=== PATIENT | male | born 1960 | race Caucasian/White ===

== ENCOUNTER 2016-12-08 00:01 | Emergency (ER) | payer OTHER ==
[~2016-12-08] VITALS: Ht 177.8 cm; Wt 81.6 kg
[2016-12-08 00:05] VITALS: BP_SYST 127
--- NOTE | 2016-12-08 02:21 | NUR ---
Patient to ER bed 7 to gown for evaluation. Side rails up. Report given to Aditya KNIGHT.
--- NOTE | 2016-12-08 02:23 | NUR ---
Patient AAOx4, ambulatory with steady gait. Patient states having pain due to headache for approximately 5 days prior to ER visit. Patient states pain scale 8/10 with sharp sensation, states pain does not radiate at this time. Patient denies any vision abnormalities and denies any mechanism of injury. Patient denies any other complaints.
--- NOTE | 2016-12-08 02:30 | NUR ---
DANIELE Carr at bedside examining patient.
[2016-12-08] MEDS ORDERED: PROCHLORPERAZINE EDISYLATE 10 MG/2 ML VIAL IM ONE (03:00)
[2016-12-08] MEDS ORDERED: KETOROLAC TROMETHAMINE 60 MG/2 ML VIAL IM ONE (03:00)
[2016-12-08 03:58] VITALS: BP_SYST 129
--- NOTE | 2016-12-08 03:58 | NUR ---
Patient given written and verbal discharge instructions and verbalizes understanding. ER MD discussed with patient the results and treatment provided. Patient in stable condition. ID arm band removed. Rx of compazine given. Patient educated on pain management and to follow up with PMD. Pain Scale 0/10. Opportunity for questions provided and answered.
== END 2016-12-08 03:58 | disposition home or self-care (01) ==
LOC: SED 00:01
DX: R51 Headache (principal); E86.0 Dehydration
CPT/HCPCS: 70450; 96372; 99284; J0780; J1885

== ENCOUNTER → 2021-03-26 | Emergency (ER) | payer OTHER, SELFPAY ==
--- NOTE | 2021-03-27 01:00 | NUR ---
Called patient 3x, no answer. Patient left without being seen. No further treatment provided. ER MD aware
== END | disposition left against medical advice (07) ==
LOC: SED 23:56
DX: M25.519 Pain in unspecified shoulder (principal); Z53.21 Procedure and treatment not carried out due to patient leaving prior to being seen by health care provider

== ENCOUNTER 2023-04-02 12:17 | Emergency (ER) | payer MEDICAID ==
[~2023-04-02] VITALS: Ht 175.3 cm; Wt 72.6 kg
[2023-04-02 12:24] VITALS: BP_SYST 97; PULSE 86; RESP 18; TEMP 97.2; O2SAT 96
[2023-04-02] MEDS ORDERED: NACL 0.9% 1,000 ML IV ONE (12:30)
[2023-04-02 13:03] LABS: BASOPHILS # (AUTO) 0.1 K/uL (0.0-0.2); BASOPHILS % (AUTO) 1.6 % (0.0-2.0); EOSINOPHILS # (AUTO) 0.4 K/uL (0.0-0.4); EOSINOPHILS % (AUTO) 4.6 % (0.0-4.0); HEMATOCRIT 41.5 % (36-54); HEMOGLOBIN 13.5 g/dL (14.0-18.0); LYMPHOCYTES # (AUTO) 1.4 K/uL (1.0-5.5); MEAN CORPUSCULAR HEMOGLOBIN 26 pg (27-31); MEAN CORPUSCULAR HGB CONC 33 % (32-36); MEAN CORPUSCULAR VOLUME 79 fL (79.0-98.0); MONOCYTES # (AUTO) 0.6 K/uL (0.0-1.0); MONOCYTES % (AUTO) 7.7 % (1.7-9.3); NEUTROPHILS # (AUTO) 5.3 K/uL (1.8-7.7); NEUTROPHILS % (AUTO) 68.1 % (40.0-70.0); PLATELET COUNT (AUTO) 278 K/uL (130-430); RED BLOOD CELL COUNT(AUTO) 5.29 MIL/uL (4.2-6.2); RED CELL DISTRIBUTION WIDTH 15.5 % (9.0-15.0); WHITE BLOOD COUNT (AUTO) 7.8 K/uL (4.8-10.8)
[2023-04-02 13:07] LABS: ANION GAP 9 (5-15); CALCIUM 8.4 mg/dL (8.4-11.0); CARBON DIOXIDE 24 mmol/L (23-29); CHLORIDE 104 mmol/L (98-107); CREATININE 1.22 mg/dL (0.55-1.30); GFR AFRICAN AMERICAN 77 mL/min (>90); GLUCOSE 114 mg/dL (74-106); POTASSIUM 3.9 mmol/L (3.5-5.1); SODIUM SERUM 137 mmol/L (136-145); UREA NITROGEN, BLOOD 15 mg/dL (8-21)
[2023-04-02 13:09] LABS: GFR NON AFRICAN-AMERICAN 64 mL/min (>90)
[2023-04-02 14:35] VITALS: BP_SYST 110; PULSE 85; RESP 16; TEMP 97.1; O2SAT 95
== END 2023-04-02 14:35 | disposition home or self-care (01) ==
LOC: SED 12:17
DX: R55 Syncope and collapse (principal); R42 Dizziness and giddiness; R05.9 Cough, unspecified; Z79.899 Other long term (current) drug therapy
CPT/HCPCS: 99285; 96360; 71045; 80048; 83880; 85025; 84484; 36415; 93005; 83605; J7030

== ENCOUNTER 2023-04-20 14:01 | Emergency (ER) | payer MEDICAID ==
[~2023-04-20] VITALS: Ht 170.2 cm; Wt 74.8 kg
[2023-04-20 14:01] VITALS: BP_SYST 100; PULSE 83; RESP 18; TEMP 97.8; O2SAT 97
[2023-04-20] MEDS ORDERED: NACL 0.9% 1,000 ML IV ONE (14:45)
[2023-04-20 15:01] LABS: BASOPHILS # (AUTO) 0.1 K/uL (0.0-0.2); EOSINOPHILS # (AUTO) 0.2 K/uL (0.0-0.4); EOSINOPHILS % (AUTO) 2.9 % (0.0-4.0); HEMATOCRIT 38.6 % (36-54); HEMOGLOBIN 12.8 g/dL (14.0-18.0); LYMPHOCYTES # (AUTO) 0.6 K/uL (1.0-5.5); LYMPHOCYTES % (AUTO) 9.4 % (20.5-51.5); MEAN CORPUSCULAR HEMOGLOBIN 26 pg (27-31); MEAN CORPUSCULAR HGB CONC 33 % (32-36); MEAN CORPUSCULAR VOLUME 78 fL (79.0-98.0); MONOCYTES # (AUTO) 0.4 K/uL (0.0-1.0); NEUTROPHILS # (AUTO) 4.9 K/uL (1.8-7.7); NEUTROPHILS % (AUTO) 80.7 % (40.0-70.0); PLATELET COUNT (AUTO) 267 K/uL (130-430); RED BLOOD CELL COUNT(AUTO) 4.94 MIL/uL (4.2-6.2); RED CELL DISTRIBUTION WIDTH 14.8 % (9.0-15.0)
[2023-04-20 15:16] LABS: ANION GAP 8 (5-15); CALCIUM 8.3 mg/dL (8.4-11.0); CARBON DIOXIDE 24 mmol/L (23-29); CHLORIDE 106 mmol/L (98-107); CREATININE 1.47 mg/dL (0.55-1.30); GFR AFRICAN AMERICAN 62 mL/min (>90); GLUCOSE 136 mg/dL (74-106); POTASSIUM 3.4 mmol/L (3.5-5.1); SODIUM SERUM 138 mmol/L (136-145); UREA NITROGEN, BLOOD 14 mg/dL (8-21)
[2023-04-20 15:20] LABS: GFR NON AFRICAN-AMERICAN 51 mL/min (>90)
[2023-04-20 17:34] VITALS: BP_SYST 117; PULSE 72; RESP 18; TEMP 97.8; O2SAT 97
== END 2023-04-20 17:34 | disposition home or self-care (01) ==
LOC: SED 14:01
DX: R55 Syncope and collapse (principal); R42 Dizziness and giddiness; Z79.899 Other long term (current) drug therapy
CPT/HCPCS: 99285; 70450; 96360; 80048; 85025; 85379; 84484; 36415; 93005; 71275; 76376; J7030

== ENCOUNTER 2023-07-22 14:26 | Emergency (ER) | payer MEDICAID ==
[~2023-07-22] VITALS: Ht 172.7 cm; Wt 77.1 kg
[2023-07-22 14:34] VITALS: BP_SYST 101; PULSE 95; RESP 16; TEMP 98; O2SAT 95
[2023-07-22 15:17] LABS: BASOPHILS # (AUTO) 0.1 K/uL (0.0-0.2); BASOPHILS % (AUTO) 1.6 % (0.0-2.0); EOSINOPHILS # (AUTO) 0.3 K/uL (0.0-0.4); EOSINOPHILS % (AUTO) 4.2 % (0.0-4.0); HEMATOCRIT 41.9 % (36-54); HEMOGLOBIN 13.8 g/dL (14.0-18.0); LYMPHOCYTES # (AUTO) 1.1 K/uL (1.0-5.5); LYMPHOCYTES % (AUTO) 18.2 % (20.5-51.5); MEAN CORPUSCULAR HEMOGLOBIN 25 pg (27-31); MEAN CORPUSCULAR HGB CONC 33 % (32-36); MEAN CORPUSCULAR VOLUME 77 fL (79.0-98.0); MONOCYTES # (AUTO) 0.7 K/uL (0.0-1.0); MONOCYTES % (AUTO) 10.6 % (1.7-9.3); NEUTROPHILS # (AUTO) 4.1 K/uL (1.8-7.7); NEUTROPHILS % (AUTO) 65.4 % (40.0-70.0); PLATELET COUNT (AUTO) 283 K/uL (130-430); RED BLOOD CELL COUNT(AUTO) 5.42 MIL/uL (4.2-6.2); RED CELL DISTRIBUTION WIDTH 15.3 % (9.0-15.0); WHITE BLOOD COUNT (AUTO) 6.2 K/uL (4.8-10.8)
[2023-07-22 15:41] LABS: ALBUMIN 2.8 g/dL (3.4-4.8); CALCIUM 8.2 mg/dL (8.4-11.0); CREATININE 1.21 mg/dL (0.55-1.30); POTASSIUM 4.2 mmol/L (3.5-5.1); TOTAL BILIRUBIN 0.3 mg/dL (0.0-1.0)
[2023-07-22 15:46] LABS: PROTHROMBIN TIME 10.8 SECS (9.5-12.5)
[2023-07-22 16:09] LABS: BILIRUBIN,DIRECT 0.1 mg/dL (0.0-0.3)
[2023-07-22] MEDS ORDERED: FLEETMO RC (17:38)
[2023-07-22] MEDS ORDERED: MAGN296S8 PO (17:38)
[2023-07-22 18:17] VITALS: BP_SYST 124; PULSE 97; RESP 16; TEMP 98; O2SAT 96
== END 2023-07-22 18:17 | disposition home or self-care (01) ==
LOC: SED 14:26
DX: K59.00 Constipation, unspecified (principal); R33.9 Retention of urine, unspecified; R39.198 Other difficulties with micturition; Z79.899 Other long term (current) drug therapy
CPT/HCPCS: 36415; 80048; 80076; 82150; 83605; 83690; 85025; 85610; 85730; 99284